=== PATIENT | male | born 1970 | race Caucasian/White ===

== ENCOUNTER 2020-05-09 17:28 | Emergency (ER) | payer OTHER ==
[~2020-05-09] VITALS: Ht 170.2 cm; Wt 74.8 kg
[2020-05-09] MEDS ORDERED: diphenhydrAMINE 50 MG/1 ML VIAL IM ONE (17:45)
[2020-05-09 17:46] VITALS: BP 132/71
[2020-05-09] MEDS ORDERED: diphenhydrAMINE 50 MG/1 ML VIAL ONE (17:46)
--- NOTE | 2020-05-09 17:47 | NUR ---
PT WAS EVALUATED BY DR REYNOLDS. PT WAS D/C'd TO HOME. D/C INSTRUCTIONS GIVEN TO THE PT BY DR REYNOLDS.
== END 2020-05-09 17:47 | disposition home or self-care (01) ==
LOC: ER 17:33
DX: L50.0 Allergic urticaria (principal)
CPT/HCPCS: 96372; 99283; J1200; A4663